=== PATIENT | male | born 1980 | race Caucasian/White ===

== ENCOUNTER 2017-03-09 00:57 | Emergency (ER) | payer MEDICAID, OTHER ==
[~2017-03-09] VITALS: Ht 182.9 cm; Wt 95.3 kg
[~2017-03-09 00:57] MED LIST: CLON2TAB PO; QUET300T2 PO
--- NOTE | 2017-03-09 01:40 | NUR ---
Dr. Ribeiro at bedside for MSE
--- NOTE | 2017-03-09 02:20 | NUR ---
Patient discharged to home in stable conditon. Written and verbal after care instructions given. Patient verbalizes understanding of instructions.
== END 2017-03-09 02:21 | disposition home or self-care (01) ==
LOC: ER 00:57
DX: F41.9 Anxiety disorder, unspecified (principal); Z76.0 Encounter for issue of repeat prescription; F17.200 Nicotine dependence, unspecified, uncomplicated; F43.10 Post-traumatic stress disorder, unspecified
CPT/HCPCS: 99284; A4663